=== PATIENT | male | born 1950 | race Caucasian/White ===

== ENCOUNTER 2018-12-08 23:15 | Emergency (ER) | payer MEDICAID, MEDICARE ==
[~2018-12-08] VITALS: Ht 152.4 cm; Wt 90.7 kg
[2018-12-09 00:26] VITALS: BP 137/88
[2018-12-09] MEDS ORDERED: CHLO15MO2 PO (00:31)
--- NOTE | 2018-12-09 00:42 | PHYS DOC ---
Past Medical History Past Medical History: No Pertinent History Past Surgical History: No Surgical History, Other Additional Past Surgical Histo: hernia Alcohol Use: None Drug Use: None Adult General Chief Complaint Chief Complaint: DENTAL PROBLEM HPI HPI Patient is a 68 year old who presents with persistent right posterior, swelling times one month post extraction per local dentist. Denies increased pain swelling, this evening. Patient is concerned that he looked to the back of his in could feel or see pus draining from his gingiva. has not spoke with his dentist since the extraction. No other symptoms or complaints [] Review of Systems Review of Systems Symptoms as prescribed. All other review symptoms are negative. All other systems were reviewed and found to be within normal limits, except as documented in this note. Allergies Allergies Allergies Coded Allergies Type Severity Reaction Last Updated Verified No Known Drug Allergies 05/02/14 No Physical Exam Physical Exam Constitutional: Well developed, well nourished, no acute distress, non-toxic appearance. [] HENT: Normocephalic, atraumatic, bilateral external ears normal, oropharynx moist, no healing gum in the area prior extraction right lower steer mandible, periodontal disease without obvious abscess or purulent drainage, nose normal. [] Eyes: PERRLA, EOMI, conjunctiva normal, no discharge. [] Neurologic: Alert and oriented X 3, normal motor function, normal sensory function, no focal deficits noted. [] Psychologic: Affect normal, judgement normal, mood normal. [] Current Patient Data Vital Signs Vital Signs Date Time Temp Pulse Resp B/P (MAP) Pulse Ox O2 Delivery O2 Flow Rate FiO2 12/09/18 00:26 99.8 74 19 137/88 (104) 98 Room Air 99.8 EKG EKG [] Radiology/Procedures Radiology/Procedures [] Course & Med Decision Making Course & Med Decision Making Pertinent Labs and Imaging studies reviewed. (See chart for details) [Dental follow-up recommended.] Dragon Disclaimer Dragon Disclaimer This electronic medical record was generated, in whole or in part, using a voice recognition dictation system. Departure Departure Impression: Primary Impression: Periodontal disease Disposition: 01 HOME, SELF-CARE Condition: STABLE Referrals: NO PCP ALEX BRENNAN MD (PCP) Patient Instructions: Gum Disease Additional Instructions: Please use mouth rinse as prescribed and follow up with your dentist early next week. Scripts Chlorhexidine Gluconate (PERIDEX) 15 Ml Mouthwash 15 ML PO BID, #946 ML Prov: BECKA NELSON DO 12/09/18 BECKA NELSON DO Dec 09, 2018 00:42
== END 2018-12-09 01:20 | disposition home or self-care (01) ==
LOC: ER 23:15
DX: K05.6 Periodontal disease, unspecified (principal)
CPT/HCPCS: 99282

== ENCOUNTER 2019-02-21 22:39 | Emergency (ER) | payer MEDICARE, OTHER ==
[~2019-02-21] VITALS: Ht 162.6 cm; Wt 76.7 kg
[~2019-02-21 22:39] MED LIST: CHLO15MO2 PO
[2019-02-21 22:45] VITALS: BP 140/98
--- NOTE | 2019-02-21 22:50 | PHYS DOC ---
Past Medical History Past Medical History: No Pertinent History (ANNIE THORPE APRN) Past Surgical History: No Surgical History, Other Additional Past Surgical Histo: hernia (ANNIE THORPE APRN) Alcohol Use: None Drug Use: None (ANNIE THORPE APRN) Adult General Chief Complaint Chief Complaint: MECHANICAL FALL HPI HPI Patient is a 68 year old male with history of smoking who presents to the ED today complaining of 8 out of 10 sharp left anterior and lateral rib pain that began today after he fell. Patient states the pain is worse on deep breaths. He states he was mowing with her pushing a lawnmower when he tripped and fell. Denies any loss of consciousness. (AQUILINOANNIE Felton APRN) Review of Systems Review of Systems Constitutional: Denies fever or chills [] Eyes: Denies change in visual acuity, redness, or eye pain [] HENT: Denies nasal congestion or sore throat [] Respiratory: Denies cough or shortness of breath [] Cardiovascular: Reports left lateral rib pain and left anterior rib pain GI: Denies abdominal pain, nausea, vomiting, bloody stools or diarrhea [] : Denies dysuria or hematuria [] Musculoskeletal: Denies back pain or joint pain [] Integument: Denies rash or skin lesions [] Neurologic: Denies headache, focal weakness or sensory changes [] Endocrine: Denies polyuria or polydipsia [] All other systems were reviewed and found to be within normal limits, except as documented in this note. (AQUILINOANNIE Felton APRN) Allergies Allergies Allergies Coded Allergies Type Severity Reaction Last Updated Verified No Known Drug Allergies 05/02/14 No (ALEX WEBB DO) Physical Exam Physical Exam Constitutional: Well developed, well nourished, no acute distress, non-toxic appearance. [] HENT: Normocephalic, atraumatic, bilateral external ears normal, oropharynx moist, no oral exudates, nose normal. [] Eyes: PERRLA, EOMI, conjunctiva normal, no discharge. [] Neck: Normal range of motion, no tenderness, supple, no stridor. [] Cardiovascular:Heart rate regular rhythm, no murmur [] Lungs & Thorax: Bilateral breath sounds clear to auscultation, no bruising to the chest. Tenderness on palpation of the left lateral ribs mid axillary line as well as left anterior ribs approximately ribs 5, 6 and 7. [] Abdomen: Bowel sounds normal, soft, no tenderness, no masses, no pulsatile masses. [] Skin: Warm, dry, no erythema, no rash. [] Back: No tenderness, no CVA tenderness. [] Extremities: No tenderness, no cyanosis, no clubbing, ROM intact, no edema. [] Neurologic: Alert and oriented X 3, normal motor function, normal sensory function, no focal deficits noted. [] Psychologic: Affect normal, judgement normal, mood normal. [] (ANNIE THORPE APRN) Current Patient Data Vital Signs Vital Signs Date Time Temp Pulse Resp B/P (MAP) Pulse Ox O2 Delivery O2 Flow Rate FiO2 02/21/19 22:45 98.6 100 18 140/98 (112) 96 Room Air 98.6 (ALEX WEBB DO) EKG EKG [] (ANNIE THORPE APRN) Radiology/Procedures Radiology/Procedures [] (ANNIE THORPE APRN) Course & Med Decision Making Course & Med Decision Making Pertinent Labs and Imaging studies reviewed. (See chart for details) This is a 68-year-old male patient who presents to the ED today with left rib pain that began after he fell. He is a smoker he was advised to consider smoking cessation. Left rib x-rays including PA chest are negative for any acute findings. Discharged with instructions to ice and elevate the area. Deep breaths. Follow-up with PCP in one week. (ANNIE THORPE APRN) Dragon Disclaimer Dragon Disclaimer This electronic medical record was generated, in whole or in part, using a voice recognition dictation system. (ANNIE THORPE APRN) Departure Departure Impression: Primary Impression: Fall down stairs Additional Impressions: Smoking addiction Contusion of rib on left side Constipation Disposition: 01 HOME, SELF-CARE Condition: STABLE Referrals: ALEX BRENNAN MD (PCP) follow up in 1- 2 weeks Patient Instructions: Constipation, Adult, Contusion, Temc-ka-Fnos Additional Instructions: You were evaluated in the emergency room for left rib contusion. Try to ice and elevate the affected area. Take the prescribed medications as needed for pain. Follow-up with your own doctor in 1-2 weeks.Your rib xrays were noted for constipation. Take [id number] medicines citrate, increase your dietary fiber and water intake. Scripts Magnesium Citrate (MAGNESIUM CITRATE) 296 Ml Solution 296 ML PO ONCE, #296 ML 1 Refill Prov: ANNIE THORPE SALES SERVICE REP 02/21/19 Cyclobenzaprine Hcl (CYCLOBENZAPRINE HCL) 10 Mg Tablet 1 TAB PO TID, #30 TAB Prov: ANNIE THORPE SURI 02/21/19 Attending Signature Attending Signature I have reviewed the PA/MORNING [employer]OW [employer] PRODUCER's note and plan of care. I was available for consultation as needed during the patient's visit in the emergency department. I agree with the clinical impression, plan, and disposition. (ALEX WEBB DO) Problem Qualifiers Primary Impression: Fall down stairs Encounter type: initial encounter Qualified Codes: W10.8XXA - Fall (on) (from) other stairs and steps, initial encounter Additional Impressions: Contusion of rib on left side Encounter type: initial encounter Qualified Codes: S20.212A - Contusion of left front wall of thorax, initial encounter Constipation Constipation type: unspecified constipation type Qualified Codes: K59.00 - Constipation, unspecified NANIE THORPE SURI Feb 21, 2019 22:50 ALEX WEBB DO Feb 22, 2019 18:25
[2019-02-21] MEDS ORDERED: MAGN296S9 PO (23:17)
[2019-02-21] MEDS ORDERED: CYCL10TA2 PO (23:17)
--- NOTE | 2019-02-21 23:29 | RAD ---
Single view chest and left-sided rib study dated 02/21/2019. No comparison available. Clinical indication: Pain after fall. FINDINGS: AP view of chest shows normal heart and mediastinal contours. Lungs are clear. No consolidation or pleural effusion. No pneumothorax. Dedicated views of left-sided ribs show no evidence of displaced left rib fracture. No acute bony abnormality. IMPRESSION:. No acute radiographic abnormality. No evidence of displaced left rib fracture. Electronically signed by: Yoni Ford MD (02/21/2019 11:26 PM) [facility]
== END 2019-02-21 23:27 | disposition home or self-care (01) ==
LOC: ER 22:39
DX: S20.212A Contusion of left front wall of thorax, initial encounter (principal); F17.200 Nicotine dependence, unspecified, uncomplicated; K59.00 Constipation, unspecified; W10.9XXA Fall (on) (from) unspecified stairs and steps, initial encounter; Y93.89 Activity, other specified; Y92.89 Other specified places as the place of occurrence of the external cause; Y99.8 Other external cause status
CPT/HCPCS: 71101; 99284

== ENCOUNTER 2021-03-21 22:56 | Emergency (ER) | payer OTHER, MEDICAID ==
[~2021-03-21] VITALS: Ht 162.6 cm; Wt 79.0 kg
[~2021-03-21 22:56] MED LIST changes: +CYCL10TA2 PO; +MAGN296S68 PO
[2021-03-22 00:08] VITALS: BP 142/101
--- NOTE | 2021-03-22 00:20 | PHYS DOC ---
Past Medical History Past Medical History: COPD Past Surgical History: Other Additional Past Surgical Histo: hernia, RIGHT TOE AMPUTATION Smoking Status: Current Every Day Smoker Alcohol Use: None Drug Use: None General Adult EDM: Chief Complaint: LOWER EXT PAIN HPI: HPI: [id number] male presents to the emergency department complaining of left knee pain that has been present for approximately 1 month. He reports that his knee pain started after he got out of bed and thought that he twisted although he did not have very severe pain after this. This occurred about 1 month ago. He states that the pain is progressively gotten worse and is intermittent. He is able to walk and bear weight on the affected extremity. He denies any other injuries or trauma. The patient denies nausea, vomiting, fever, chills, chest pain, or any other complaints. Review of Systems: Review of Systems: ROS otherwise negative except for what is mentioned in HPI Heart Score: C/O Chest Pain: No Allergies: Allergies: Allergies Coded Allergies Type Severity Reaction Last Updated Verified No Known Drug Allergies 05/02/14 No Physical Exam: PE: Constitutional: No acute distress, non-toxic appearance. HENT: Atraumatic, normocephalic. Eyes: Conjunctiva normal, normal tracking. Neck: Normal range of motion, supple. Abdomen: Soft, no tenderness Skin: Warm, dry, no overlying skin changes over the lower extremities. Extremities: Left knee with ecchymosis on the anterior aspect of the knee, tenderness to palpation along the patella and medial knee area, mild soft tissue swelling is appreciated. Patient is able to bear weight and flex and extend of the affected extremity. There is no femoral tenderness, there is no tibial or fibular tenderness. Neurologic: Alert and oriented X 3. Normal motor function of the lower extremities bilaterally. Normal sensory function of the lower extremities. No focal deficits noted. GCS 15. Psychologic: Affect normal, judgment normal, mood normal. Current Patient Data: Vital Signs: Vital Signs Date Time Temp Pulse Resp B/P (MAP) Pulse Ox O2 Delivery O2 Flow Rate FiO2 03/22/21 00:08 97.8 76 142/101 (115) 96 Room Air 97.8 Radiology/Procedures: Radiology/Procedures: X-ray with no obvious fracture. Interpreted by me. Course & Med Decision Making: Course & Med Decision Making My Orders - DESMOND AGGARWAL DO Procedure Category Date Status Time Knee Left 3v RAD 03/22/21 Logged 00:15 Ketorolac 15mg Vial PHA 03/22/21 In Process (Toradol 15mg Vial) 00:30 Patient with negative x-ray, he was started on following up with his primary care provider Dr. Ocampo and obtaining an MRI to rule out ligamentous damage in h is left knee. Counseled on conservative pain management techniques Departure Departure Impression: Primary Impression: Left knee pain Disposition: HOME / SELF CARE / HOMELESS Condition: STABLE Referrals: ALEX OCAMPO MD (PCP) Patient Instructions: Contusion, Oyyy-wy-Wwpv, Knee Pain, Kuij-uq-Sajl Additional Instructions: You were seen in the emergency department for a musculoskeletal problem that will likely get better over time. You may utilize something called the "RICE" protocol (Rest, Ice, Compresses, Elevation) to help alleviate your pain: ? Hold off on doing intense exercise that may make the pain worse. Sometimes gentle stretching can provide relief, but be careful to avoid further injury. It is important to perform gentle range of motion exercises to prevent stiff joints and chronic pain. ? Use ice packs over the affected area to help decrease your pain. Ice can work as a numbing agent over your painful area. For the first 24 hours, apply ice 2-4 times per day for a maximum 15-20 minutes each time. Ice should be in a plastic bag. ? You may use warm compresses to help improve blood flow and decrease swelling. Alternating with ice packs and warm compresses works well. ? You may elevate the affected area to help improve drainage and reduce swelling, which will also help your pain. As we discussed, you need to follow-up with your primary care doctor to schedule an MRI to take a closer look to your knee to make sure you do not have any ligamentous damage. We are not able to order this test through the emergency department DESMOND AGGARWAL DO Mar 22, 2021 00:20
[2021-03-22] MEDS ORDERED: KETOROLAC 15 MG/ML VIAL. IM ONE (00:30)
--- NOTE | 2021-03-22 07:14 | RAD ---
History: Ecchymosis, pain Comparison: None. Findings: No acute fracture. Marginal osteophytes in the medial and patellofemoral compartments. Trac e joint effusion. Mild amount of prepatellar soft tissue swelling. Impression: No acute osseous findings. Findings suggestive of prepatellar bursitis. Electronically signed by: Shahzad Choi DO (03/22/2021 7:11 AM) [facility]
== END 2021-03-22 02:34 | disposition home or self-care (01) ==
LOC: ER 22:56
DX: M25.562 Pain in left knee (principal); J44.9 Chronic obstructive pulmonary disease, unspecified; F17.200 Nicotine dependence, unspecified, uncomplicated
CPT/HCPCS: 73562; 96372; 99283; J1885

== ENCOUNTER 2021-09-17 22:06 | Emergency (ER) | payer OTHER, MEDICAID ==
[~2021-09-17] VITALS: Ht 162.6 cm; Wt 82.3 kg
[~2021-09-17 22:06] MED LIST changes: +CYCL10TA19 PO; -CYCL10TA2 PO
[2021-09-17 23:08] VITALS: BP 128/94
--- NOTE | 2021-09-17 23:15 | ED.ADGEN ---
Past Medical History Past Medical History: COPD Past Surgical History: Other Additional Past Surgical Histo: TOE AMP ON RIGHT FOOT, KNEE CYST REMOVAL, TEST CYST REMOVAL, HERNIA REPAIR Smoking Status: Former Smoker Alcohol Use: None Drug Use: None General Adult EDM: Chief Complaint: EARACHE/EAR PAIN HPI: HPI: Patient is a 71 year old male coming in for left ear pain and decreased hearing for the past 2 days. Patient tried some earache drops. States he was using Q- tips and felt it was pushing wax further in. Denies any discharge or history of ear problems. Review of Systems: Review of Systems: All other systems within normal limits except for as noted in the HPI Current Medications: Current Medications Medications (Trade) Dose Ordered Sig/Margaret Start Time Stop Time Status Last Admin Dose Admin Docusate Sodium (Colace Solution) 100 mg 1X ONCE 09/17/21 23:30 09/17/21 23:31 DC 09/17/21 23:23 100 MG Allergies: Allergies: Allergies Coded Allergies Type Severity Reaction Last Updated Verified No Known Drug Allergies 05/02/14 No Physical Exam: PE: Constitutional: Well developed, well nourished, no acute distress, non-toxic appearance. [] HENT: Normocephalic, atraumatic, bilateral external ears normal, nose normal. Bilateral canals normal, left cerumen impaction, no pain with movement of pinna: Tenderness, no mastoid tenderness Eyes: PERRLA, conjunctiva normal, no discharge. Neck: No rigidity, supple, no stridor. [] Cardiovascular: Regular rate and rhythm, brisk cap refill [] Lungs & Thorax: Non labored symmetric respirations, no tachypnea or respiratory distress [] Abdomen: Soft, nondistended. Skin: Warm, dry, no erythema, no rash. [] Back: Unremarkable Extremities: No deformities, range of motion grossly intact, no lower extremity edema [] Neurologic: Alert and oriented X 3, no focal deficits noted. [] Psychologic: Affect normal, judgement normal, mood normal. [] Current Patient Data: Vital Signs: Vital Signs Date Time Temp Pulse Resp B/P (MAP) Pulse Ox O2 Delivery O2 Flow Rate FiO2 09/17/21 23:08 82 16 128/94 (105) 96 Room Air 09/17/21 22:41 98.4 98.4 EKG: EKG: [] Heart Score: C/O Chest Pain: No Risk Factors: Risk Factors: DM, Current or recent (<one month) smoker, HTN, HLP, family history of CAD, obesity. Risk Scores: Score 0 - 3: 2.5% MACE over next 6 weeks - Discharge Home Score 4 - 6: 20.3% MACE over next 6 weeks - Admit for Clinical Observation Score 7 - 10: 72.7% MACE over next 6 weeks - Early Invasive Strategies Radiology/Procedures: Radiology/Procedures: [] Course & Med Decision Making: Course & Med Decision Making Left ear canal irrigated and a large amount of cerumen removed. Patient states he is feeling better and his hearing has improved. Repeat exam shows mild erythema of the TM but otherwise clearing of the canal and no abnormalities Dragon Disclaimer: Chang Disclaimer: This electronic medical record was generated, in whole or in part, using a voice recognition dictation system. Departure Departure Impression: Primary Impression: Impacted cerumen of left ear Disposition: HOME / SELF CARE / HOMELESS Condition: IMPROVED Referrals: ALEX BRENNAN MD (PCP) Patient Instructions: Cerumen Impaction KAVYA FOSTER MD Sep 17, 2021 23:15
[2021-09-17] MEDS ORDERED: DOCUSATE 100 MG/10 ML SOLUTION. PO ONE (23:30)
== END 2021-09-18 00:27 | disposition home or self-care (01) ==
LOC: ER 22:06
DX: H61.22 Impacted cerumen, left ear (principal); J44.9 Chronic obstructive pulmonary disease, unspecified; Z87.891 Personal history of nicotine dependence
CPT/HCPCS: 69209; 99282

== ENCOUNTER 2021-11-21 23:14 | Emergency (ER) | payer OTHER, MEDICAID ==
[~2021-11-21] VITALS: Ht 162.6 cm; Wt 81.4 kg
[2021-11-21 23:24] VITALS: BP 118/88
[2021-11-21] MEDS ORDERED: INDOMETHACIN 25 MG CAPSULE. PO STA (23:33)
[2021-11-21] MEDS ORDERED: INDO50CA15 PO (23:38)
--- NOTE | 2021-11-21 23:38 | PHYS DOC ---
Past Medical History Past Medical History: COPD Additional Past Medical Histor: emphysema Past Surgical History: Other Additional Past Surgical Histo: right toe amputation x 2 Smoking Status: Former Smoker Alcohol Use: Rarely Drug Use: None General Adult EDM: Chief Complaint: ELBOW PROBLEM HPI: HPI: Patient is a 71 year old M who presents with 2 days of pain in his right elbow associated with redness and swelling. Patient does not recall an injury to the elbow and has not had pain similar to this in his elbow in the past. Patient does note that he has a history of gout but is classically had pain in his knees prior. Patient denies any fevers, chills, nausea vomiting diarrhea, chest pain, cough, shortness of breath. Review of Systems: Review of Systems: Constitutional: Denies fever or chills. [] Eyes: Denies change in visual acuity. [] HENT: Denies nasal congestion or sore throat. [] Respiratory: Denies cough or shortness of breath. [] Cardiovascular: Denies chest pain or edema. [] GI: Denies abdominal pain, nausea, vomiting, bloody stools or diarrhea. [] : Denies dysuria. [] Musculoskeletal: R elbow pain, deformity or pain the other 3 limbs Integument: Denies rash. [] Neurologic: Denies headache, focal weakness or sensory changes. [] Endocrine: Denies polyuria or polydipsia. [] Lymphatic: Denies swollen glands. [] Psychiatric: Denies depression or anxiety. [] Heart Score: C/O Chest Pain: No Risk Factors: Risk Factors: DM, Current or recent (<one month) smoker, HTN, HLP, family history of CAD, obesity. Risk Scores: Score 0 - 3: 2.5% MACE over next 6 weeks - Discharge Home Score 4 - 6: 20.3% MACE over next 6 weeks - Admit for Clinical Observation Score 7 - 10: 72.7% MACE over next 6 weeks - Early Invasive Strategies Allergies: Allergies: Allergies Coded Allergies Type Severity Reaction Last Updated Verified No Known Drug Allergies 05/02/14 No Physical Exam: PE: Constitutional: Well developed, well nourished, no acute distress, non-toxic appearance. [] HENT: Normocephalic, atraumatic, bilateral external ears normal, oropharynx moist, no oral exudates, nose normal. [] Eyes: PERRLA, EOMI, conjunctiva normal, no discharge. [] Neck: Normal range of motion, no tenderness, supple, no stridor. [] Cardiovascular:Heart rate regular rhythm, no murmur [] Lungs & Thorax: Bilateral breath sounds clear to auscultation [] Abdomen: Bowel sounds normal, soft, no tenderness, no masses, no pulsatile masses. [] Skin: Warm, dry, no erythema, no rash. [] Back: No tenderness, no CVA tenderness. [] Extremities: Mild swelling, redness and warmth to touch over his R elbow, full ROM with mild pain, n/v intact Neurologic: Alert and oriented X 3, normal motor function, normal sensory function, no focal deficits noted. [] Psychologic: Affect normal, judgement normal, mood normal. [] Current Patient Data: Vital Signs: Vital Signs Date Time Temp Pulse Resp B/P (MAP) Pulse Ox O2 Delivery O2 Flow Rate FiO2 11/21/21 23:24 98.6 98 16 118/88 (98) 97 Room Air 98.6 EKG: EKG: [] Radiology/Procedures: Radiology/Procedures: [] Course & Med Decision Making: Course & Med Decision Making Patient with likely gout flare, will start indomethacin and prescribe the same for 10 days with instructions to take 3 times a day until symptoms have completely resolved and then to resume for an additional 3 days. Recommended the patient follow-up closely with his primary doctor if symptoms have not significantly improved in the next 2 days. Chang Disclaimer: Chang Disclaimer: This electronic medical record was generated, in whole or in part, using a voice recognition dictation system. 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
== END 2021-11-22 00:05 | disposition home or self-care (01) ==
LOC: ER 23:14
DX: M10.021 Idiopathic gout, right elbow (principal); J44.9 Chronic obstructive pulmonary disease, unspecified
CPT/HCPCS: 99283

== ENCOUNTER 2021-11-29 23:47 | Emergency (ER) | payer OTHER, MEDICAID ==
[~2021-11-29] VITALS: Ht 162.6 cm; Wt 81.8 kg
[~2021-11-29 23:47] MED LIST changes: +INDO50CA15 PO
[2021-11-30 00:05] VITALS: BP 153/95
[2021-11-30] MEDS ORDERED: ACETAMINOPHEN 500 MG TABLET PO ONE (00:30)
[2021-11-30] MEDS ORDERED: CEPHALEXIN 250 MG CAPSULE. PO ONE (00:30)
--- NOTE | 2021-11-30 01:13 | PHYS DOC ---
Past Medical History Past Medical History: COPD Additional Past Medical Histor: emphysema Past Surgical History: Other Additional Past Surgical Histo: right toe amputation x 2 Smoking Status: Former Smoker Alcohol Use: Rarely Drug Use: None General Adult EDM: Chief Complaint: ELBOW PROBLEM HPI: HPI: Patient is a 71 year old male presents to the emergency department complaining of increased pain and redness with swelling to the right elbow. Patient denies injury to this elbow. Patient reports she was seen here on 11/21/2021 and was diagnosed with gouty arthritis. Patient reports he was started on indomethacin without any relief in symptoms, patient reports his symptoms are worsening. Patient reports a 7 out of 10 pain to his right elbow. Patient denies fever or chills, denies nausea, vomiting, diarrhea, denies chest pains, chest or nasal congestion, denies shortness of breath. Patient denies syncopal or near syncopal episodes, denies dizziness. Patient denies other people living at home with same or similar symptoms, patient denies other physical complaints or physical concerns. Review of Systems: Review of Systems: 14 body systems of review of systems have been reviewed. See HPI for pertinent positives and negative responses, otherwise all other systems are negative, nonpertinent or noncontributory. Constitutional: Negative except as outlined in HPI above. Skin: Negative except as outlined in HPI above. Eyes: Negative except as outlined in HPI above. HENT: Negative except as outlined in HPI above. Respiratory: Negative except as outlined in HPI above. Cardiovascular: Negative except as outlined in HPI above. GI: Negative except as outlined in HPI above. : Negative except as outlined in HPI above. Musculoskeletal: Negative except as outlined in HPI above. Integument: Negative except as outlined in HPI above. Neurologic: Negative except as outlined in HPI above. Endocrine: Negative except as outlined in HPI above. Lymphatic: Negative except as outlined in HPI above. Psychiatric: Negative except as outlined in HPI above. Heart Score: C/O Chest Pain: No Risk Factors: Risk Factors: DM, Current or recent (<one month) smoker, HTN, HLP, family history of CAD, obesity. Risk Scores: Score 0 - 3: 2.5% MACE over next 6 weeks - Discharge Home Score 4 - 6: 20.3% MACE over next 6 weeks - Admit for Clinical Observation Score 7 - 10: 72.7% MACE over next 6 weeks - Early Invasive Strategies Current Medications: Current Medications Medications (Trade) Dose Ordered Sig/Margaret Start Time Stop Time Status Last Admin Dose Admin Acetaminophen (Tylenol) 1,000 mg 1X ONCE 11/30/21 00:30 11/30/21 00:31 DC 11/30/21 00:38 1,000 MG Cephalexin HCl (Keflex) 500 mg 1X ONCE 11/30/21 00:30 11/30/21 00:31 DC 11/30/21 00:37 500 MG Allergies: Allergies: Allergies Coded Allergies Type Severity Reaction Last Updated Verified No Known Drug Allergies 05/02/14 No Physical Exam: PE: Constitutional: Well developed, well nourished, no acute distress, non-toxic appearance. 71-year-old male in no apparent distress. HENT: Normocephalic, atraumatic. Eyes: Conjunctiva normal, no discharge. Neck: Normal range of motion, no stridor. Cardiovascular: No cyanosis appreciated, distal cap refill less than 2 seconds. Lungs & Thorax: Patient is in no respiratory distress, no audible adventitious lung sounds appreciated. Abdomen: Nontender, no abnormalities noted. Skin: Warm, dry, no erythema, no rash. See extremity note for focused skin examination. Back: No tenderness, no deformities. Extremities: No tenderness, no cyanosis, no clubbing, ROM intact, no edema. Except for right elbow, there is a 5 cm area of erythema with induration and swelling with clearly demarcated borders over the olecranon process bony prominences, there is no central punctum, there is no purulent drainage. No lymphangitis present. Full passive range of motion of elbow without crepitus or eliciting pain in the elbow joint, patient reports pain only at skin surfaces during range of motion of elbow. Distal cap refill is less than 2 seconds equal bilateral upper extremities, 2+ radial pulses equal bilateral upper extremities. Neurologic: Alert and oriented X 3, normal motor function, normal sensory function, no focal deficits noted. Psychologic: Affect normal, judgement normal, mood normal. Current Patient Data: Vital Signs: Vital Signs Date Time Temp Pulse Resp B/P (MAP) Pulse Ox O2 Delivery O2 Flow Rate FiO2 11/30/21 00:05 97.9 88 18 153/95 (114) 99 Room Air 97.9 EKG: EKG: [] Radiology/Procedures: Radiology/Procedures: STATUS: REG ER ORD. PHYSICIAN: ALEX LOVELACE APRN REASON: Pain, erythema, swelling PROCEDURE: ELBOW RIGHT 3V 3 view right elbow HISTORY: Pain and erythema and swelling The visualized osseous structures appear normal. IMPRESSION: No acute findings. Electronically signed by: Korey North III, MD (11/30/2021 1:13 AM) [facility] Course & Med Decision Making: Course & Med Decision Making Pertinent Labs and Imaging studies reviewed. (See chart for details) 71-year-old male, vital signs reviewed, presents to the emergency department concerning worsening right elbow pain redness and swelling. Physical examination is suspicious for cellulitis, the area of swelling is slightly fluctuant however will order x-ray to rule out drainable abscess, septic joint, other bony process. Wet read x-ray by myself and attending physician Dr. Linares is nonconcerning for bony process, unlikely drainable abscess, patient was started on Keflex p.o. regimen in the ED today. Discussed all findings with patient, suspicion of skin infection, discussed antibiotics, side effects, strict follow-up with primary care soon, return to ER precautions and concerns were reviewed, patient gave verbal understanding of and is amenable to ED discharge planning. Discussed with the patient all findings and diagnostic testing as well as the need to follow-up with their primary care provider for further evaluation and treatment or return to the ED if any new or worsening symptoms. Strict return precautions were also discussed at length, the patient voiced understanding and agreement with the discharge planning. The patient was nontoxic in appearance, in no apparent distress, and hemodynamically stable at the time of disposition. Dragon Disclaimer: Draggurwinder Disclaimer: This electronic medical record was generated, in whole or in part, using a voice recognition dictation system. Departure Departure Impression: Primary Impression: Cellulitis of right elbow Disposition: 01 HOME / SELF CARE / HOMELESS Condition: GOOD Referrals: ALEX OCAMPO MD (PCP) Patient Instructions: Cellulitis Additional Instructions: You were seen today in the emergency department for pain redness and swelling of the right elbow. An x-ray was performed today of the right elbow did not show any concerning findings of bone abnormality, bone infection. There did not appear to be a drainable infectious abscess. However as we discussed I am starting you on a antibiotic for a skin infection called cellulitis. You will take this 4 times a day for the next 10 days. Please take as directed till complete. You may use [id number] Tylenol or Motrin for ongoing pain and discomfort. Please call Dr. Ocampo tomorrow for an appointment to have your elbow skin infection reevaluated in his office, please take your antibiotic medications with you so he may review and determine whether or not a medication change is warranted. Thank you for visiting our Emergency Department. It was a pleasure taking care of you today in the emergency department and we appreciate you trusting us with your care. If any additional problems come up don't hesitate to return to visit us. Please follow up with your primary care provider so they can plan additional care if needed and know about the problem that you had. If symptoms worsen come back to the Emergency Department. Any concerning symptoms that start such as chest pain, shortness of air, weakness or numbness on one side of the body, running high fevers or any other concerning symptoms return to the ER. Scripts Cephalexin (CEPHALEXIN) 500 Mg Tablet 1 TAB PO QID for skin infection, #40 TAB 0 Refills Prov: ALEX LOVELACE APRN 11/30/21 ALEX LOVELACE APRN November 30, 2021 01:13
[2021-11-30] MEDS ORDERED: CEPH500T PO (01:15)
== END 2021-11-30 01:21 | disposition home or self-care (01) ==
LOC: ER 23:47
DX: L03.113 Cellulitis of right upper limb (principal); J44.9 Chronic obstructive pulmonary disease, unspecified; Z87.891 Personal history of nicotine dependence
CPT/HCPCS: 73080; 99283